=== PATIENT | female | born 1975 | race Caucasian/White ===

== ENCOUNTER 2023-03-13 18:27 | Emergency (ER) | payer SELFPAY | END 2023-03-13 19:35 | disposition home or self-care (01) | LOC: NAV ERS 18:27 | DX: S09.90XA Unspecified injury of head, initial encounter (principal); S00.11XA Contusion of right eyelid and periocular area, initial encounter; F17.210 Nicotine dependence, cigarettes, uncomplicated; F17.290 Nicotine dependence, other tobacco product, uncomplicated; W18.09XA Striking against other object with subsequent fall, initial encounter; Y93.01 Activity, walking, marching and hiking | CPT/HCPCS: 99283 ==